=== PATIENT | male | born 1980 | race Caucasian/White ===

== ENCOUNTER → 2024-08-28 | Outpatient (CLI) | payer MEDICAID, SELFPAY ==
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
--- NOTE | 2024-08-28 15:15 | XR_ITS ---
Examination: MRI right ankle, without contrast Date and time of exam: August 28, 2024 1631 hours Comparison May 07, 2023 INDICATIONS: Pain and swelling in the ankle beginning 2000 joint clicking stiffness swelling Technique: Multiple axial sagittal and coronal images of the right ankle have been obtained with the Siemens high-resolution 1.5 [employer] MRI scanner. Images obtained include T2-weighted fat-suppressed sagittal sections, TR 3500, TE 46, T2 weighted coronal fat suppressed images, TR 3050, TE 84, T2-weighted transverse fat suppressed images, TR 3260, TE 63, proton density transverse images, TR 4720 TE 46, and T1 weighted coronal images, TR 560, TE 13. Findings: Orthopedic hardware in the distal tibia generates significant magnetic susceptibility artifact Advanced osteoarthritis tibiotalar joint Achilles tendon plantar fascia intact Small erosions dome of the talus and distal surface of the tibia Negative for sinus Tarsi syndrome Talar fibular ligaments are intact IMPRESSION: Orthopedic hardware generates magnetic susceptibility artifact which severely degrades scan image quality Posttraumatic advanced osteoarthritis tibiotalar joint tibia Small erosions distal articulating surface of the tibia and dome of the talus, consider fluoroscopic aspiration of the tibiotalar joint to exclude septic arthritis
== END | disposition home or self-care (01) ==
PROVIDERS: PCP Family Medicine; Referring Provider Family Medicine; Visit Provider Family Medicine
DX: M25.571 Pain in right ankle and joints of right foot (principal); M19.171 Post-traumatic osteoarthritis, right ankle and foot; M85.871 Other specified disorders of bone density and structure, right ankle and foot; M51.379 Other intervertebral disc degeneration, lumbosacral region without mention of lumbar back pain or lower extremity pain; M51.369 Other intervertebral disc degeneration, lumbar region without mention of lumbar back pain or lower extremity pain
CPT/HCPCS: 72148; 73721

== ENCOUNTER → 2024-09-23 | Outpatient (CLI) | payer MEDICAID, SELFPAY ==
--- NOTE | 2024-09-23 10:30 | XR_ITS ---
Examination: CT abdomen, without intravenous contrast. CT pelvis, without intravenous contrast. CT abdomen, with intravenous contrast. CT pelvis, with intravenous contrast. 2-D sagittal coronal reconstructions. Date and time of exam:September 23, 2024 1146 hours INDICATIONS: Intermittent abdominal pain one year CTDI: vol (mGy) 23.7 DLP: (mGycm) 1511 Technique: Multiple 3.0 axial images of the abdomen and pelvis without intravenous contrast, 3.0 mm slice thickness. Multiple 3.0 postcontrast images abdomen and pelvis also obtained, post intravenous injection 60 cc [id number] 2-D sagittal and coronal reconstructions. Low dose protocols were performed. One or more of the following dose reduction techniques were used; automated exposure control, adjustment of the mA and/or KV according to patient size, use of iterative reconstruction technique. Findings: Multiple small benign liver cysts Spleen not enlarged No gallstones No pancreatic or adrenal mass No renal or ureteral calculi, no hydronephrosis Aorta normal size Normal appendix No bowel obstruction. No diverticulitis No prostatomegaly Bladder intact Advanced degenerative disc disease L5-S1, chronic wedging L2, L1 IMPRESSION: Multiple benign liver cysts No renal or ureteral calculi, no hydronephrosis Normal appendix No bowel obstruction or diverticulitis
== END | disposition home or self-care (01) ==
PROVIDERS: PCP Family Medicine; Referring Provider Family Medicine; Visit Provider Family Medicine
DX: K76.89 Other specified diseases of liver (principal)
CPT/HCPCS: 74178; A4649; Q9967